=== PATIENT | male | born 1980 | race Caucasian/White ===

== ENCOUNTER 2020-02-08 13:22 | Emergency (ER) | payer OTHER ==
[~2020-02-08] VITALS: Ht 182.9 cm; Wt 95.3 kg
[2020-02-08] MEDS ORDERED: PREDNISONE 20 M20 MG PO (14:00)
[2020-02-08] MEDS ORDERED: HYDROXYZINE HCL25 M2 PO (14:03)
[2020-02-08] MEDS ORDERED: PEPCID20 MG PO (14:03)
[2020-02-08 14:15] VITALS: BP 112/77
== END 2020-02-08 14:15 | disposition home or self-care (01) ==
LOC: M.ERS 13:22
DX: L50.9 Urticaria, unspecified (principal); Z91.048 Other nonmedicinal substance allergy status